=== PATIENT | female | born 1995 | race Caucasian/White ===

== ENCOUNTER 2024-09-21 14:05 | Emergency (ER) | payer SELFPAY ==
[~2024-09-21] VITALS: Ht 180.3 cm; Wt 68.0 kg
[2024-09-21 14:25] VITALS: BP 116/78; PULSE 80; RESP 16
[2024-09-21] MEDS: KETOROLAC TROMETHAMINE 30 MG/ML VIAL IM STA (14:46)
[2024-09-21 15:04] VITALS: PULSE 79; RESP 16; TEMP 98.4; O2SAT 100
== END 2024-09-21 15:17 | disposition home or self-care (01) ==
LOC: EDBD 14:05 → ER 14:13
DX: M25.512 Pain in left shoulder (principal); G44.209 Tension-type headache, unspecified, not intractable; M62.838 Other muscle spasm; F17.210 Nicotine dependence, cigarettes, uncomplicated
CPT/HCPCS: 99284; J1885